=== PATIENT | male | born 1940 ===

== ENCOUNTER 2020-09-29 12:42 | Outpatient (CLI) | payer OTHER ==
[~2020-09-29 12:42] MED LIST: CARDURA8 MG PO; KETO10TA2 PO; LIPITOR20 MG PO; NORVASC2.5 MG
== END 2020-09-29 12:53 | disposition home or self-care (01) ==
LOC: TOM 12:42
PROVIDERS: ATTEND Internal Medicine
DX: K57.90 Diverticulosis of intestine, part unspecified, without perforation or abscess without bleeding (principal); R10.84 Generalized abdominal pain

== ENCOUNTER 2021-11-17 13:24 | Emergency (ER) | payer OTHER ==
[~2021-11-17] VITALS: Ht 177.8 cm; Wt 99.8 kg
== END 2021-11-17 20:35 | disposition home or self-care (01) ==
LOC: ER 13:24
DX: R10.11 Right upper quadrant pain (principal); K57.30 Diverticulosis of large intestine without perforation or abscess without bleeding